=== PATIENT | male | born 1995 | race Caucasian/White ===

== ENCOUNTER 2017-02-08 14:37 | Emergency (ER) | payer MEDICAID ==
[~2017-02-08] VITALS: Ht 182.9 cm; Wt 73.0 kg
[~2017-02-08 14:37] MED LIST: CIPR500T87 PO; HYDR-3240 PO; OXYC-302 PO; PHEN-418 PO
[2017-02-08] MEDS ORDERED: SODIUM CHLORIDE FLUSH 10ML SYR IVF ONE (15:30)
[2017-02-08] MEDS ORDERED: KETOROLAC 30 MG/1 ML IVPush ONE (15:30)
[2017-02-08] MEDS ORDERED: SODIUM CHLORIDE 0.9% 1,000ML IV ONE (15:30)
[2017-02-08] MEDS ORDERED: ONDANSETRON 2MG/ML, 2ML IVPush ONE (15:30)
[2017-02-08 15:33] LABS: HEMATOCRIT 45.2 % (39.2-51.8); HEMOGLOBIN 15.1 g/dL (13.7-18.0); WHITE BLOOD COUNT 5.3 x10^3/uL (3.4-10)
[2017-02-08] MEDS ORDERED: KETOROLAC 30 MG/1 ML ONE (15:43)
[2017-02-08] MEDS ORDERED: ONDANSETRON 2MG/ML, 2ML ONE (15:43)
[2017-02-08 15:46] LABS: ASPARTATE AMINO TRANSFERASE 65 U/L (15-37); BLOOD UREA NITROGEN 8 mg/dL (7-18)
[2017-02-08] MEDS ORDERED: MORPHINE SULFATE 4 MG/ML, 1ML ONE (17:23)
[2017-02-08] MEDS ORDERED: MORPHINE SULFATE 4 MG/ML, 1ML IVPush PRN (17:30)
[2017-02-08 19:17] VITALS: BP 119/74
== END 2017-02-08 19:19 | disposition home or self-care (01) ==
LOC: ED 16:15
DX: N20.1 Calculus of ureter (principal); N23 Unspecified renal colic; F17.200 Nicotine dependence, unspecified, uncomplicated; Z88.0 Allergy status to penicillin
CPT/HCPCS: 36415; 74176; 76770; 80053; 81001; 83690; 85025; 87086; 96361; 96374; 96375; 99285; J1885; J2405; J7030

== ENCOUNTER 2020-03-01 21:16 | Emergency (ER) | payer MEDICAID ==
[~2020-03-01] VITALS: Ht 182.9 cm; Wt 72.0 kg
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
[2020-03-01] MEDS ORDERED: KETOROLAC 60 MG/2 ML ONE (21:54)
[2020-03-01] MEDS ORDERED: HYDROmorphone 1 MG/ML, 1ML INJ ONE (21:54)
--- NOTE | 2020-03-01 21:57 | NUR ---
PT TALKING ON CELL PHONE.
--- NOTE | 2020-03-01 21:58 | NUR ---
PT REQUESTED WATER UPON ARRIVAL TO ROOM, EDUCATED THAT TESTS NEED TO BE RUN AND THAT HE NEEDS TO REMAIN NPO UNTIL THEY ARE RESULTED. PT HAS ASKED FOR WATER 4 TIMES AND HAS BEEN REEDUCATED EACH TIME.
[2020-03-01] MEDS ORDERED: HYDROmorphone 1 MG/ML, 1ML INJ IM ONE (22:00)
[2020-03-01] MEDS ORDERED: KETOROLAC 30 MG/1 ML IM ONE (22:00)
--- NOTE | 2020-03-01 22:01 | NUR ---
PT HUNG UP PHONE TO BE MEDICATED, PT BACK ON CELL PHONE AT THIS TIME.
--- NOTE | 2020-03-01 22:18 | NUR ---
PT REMAINS IN IMAGING.
--- NOTE | 2020-03-01 23:19 | NUR ---
PT LAYING IN BED, ON PHONE, RESPIRATIONS EVEN AND UNLABORED. CONNECTED TO PULSE OX AND BP MONITORS. CALL LIGHT IN REACH, BED RAILS UP X2. AWAITING IMAGING READ.
[2020-03-01 23:29] VITALS: BP 117/65
--- NOTE | 2020-03-01 23:56 | NUR ---
PT AMBULATORY TO BATHROOM WITH LIMP BUT WITHOUT ASSISSTANCE.
--- NOTE | 2020-03-02 00:42 | NUR ---
PRIOR TO D/C, PT UP IN ROOM TO GET DRESSED, NO SIGNS OF DISTRESS.
== END 2020-03-02 00:43 | disposition home or self-care (01) ==
LOC: ED 23:50
DX: S93.492A Sprain of other ligament of left ankle, initial encounter (principal); S39.012A Strain of muscle, fascia and tendon of lower back, initial encounter; S90.02XA Contusion of left ankle, initial encounter; S80.02XA Contusion of left knee, initial encounter; S40.211A Abrasion of right shoulder, initial encounter; F17.210 Nicotine dependence, cigarettes, uncomplicated; V27.4XXA Motorcycle driver injured in collision with fixed or stationary object in traffic accident, initial encounter; Y93.89 Activity, other specified; Y92.410 Unspecified street and highway as the place of occurrence of the external cause; Y99.8 Other external cause status
CPT/HCPCS: 29505; 72110; 73030; 73560; 73600; 73610; 73630; 96372; 99284; 99406; J1170; J1885